=== PATIENT | female | born 1965 | race African-American/Black ===

== ENCOUNTER 2023-05-16 10:05 | Outpatient (OUT) | payer OTHER, SELFPAY ==
--- NOTE | 2023-05-16 10:13 | MM_ITS ---
Patient Name: KLEVER DORSEY MR#: [id number] : 1965 Exam Date: 05/16/2023 Ordering Doctor: DR. CIARA WARE ENDOCRIN RADIOLOGY REPORT PROCEDURE: MM TOMOSYNTHESIS SCREENING BI COMPARISON: MG MAMM SCREEN 3D KALYN CAD, 05/15/2022. MG MAMM SCREEN 3D KALYN CAD, 05/06/2021. INDICATIONS: Screening Calculator Name NCI Breast Cancer Risk Assessment Tool 5 Year Breast Cancer Risk Not Reported. Lifetime Breast Cancer Risk Not Reported. Personal Breast Cancer No Personal Ovarian Cancer No Treatments None Family Cancers None LOCATION: The [facility] BREAST COMPOSITION: Scattered areas fibroglandular density. FINDINGS: DIAGNOSTIC CATEGORY 1--NEGATIVE. NO CHANGE FROM COMPARISON ASSESSMENT. Scattered benign-appearing calcifications are present. RIGHT BREAST: No significant suspicious finding. LEFT BREAST: No significant suspicious finding. RECOMMENDATIONS: ROUTINE MAMMOGRAM AND CLINICAL EVALUATION IN 12 MONTHS. PLEASE NOTE: A NORMAL MAMMOGRAM DOES NOT EXCLUDE THE POSSIBILITY OF BREAST CANCER. A CLINICALLY SUSPICIOUS PALPABLE LUMP SHOULD BE BIOPSIED. Dictated by: Zachary Cheung MD on 05/16/2023 at 12:59 Approved by: Zachary Cheung MD on 05/16/2023 at 13:00
== END 2023-05-16 10:06 | disposition home or self-care (01) ==
LOC: MAMMO 10:07
PROVIDERS: Visit Provider Internal Medicine
DX: Z12.31 Encounter for screening mammogram for malignant neoplasm of breast (principal)
CPT/HCPCS: 77063; 77067